=== PATIENT | female | born 1965 | race Caucasian/White ===

== ENCOUNTER 2017-05-25 09:11 | Day surgery (SDC) | payer OTHER ==
[2017-05-25 09:52] VITALS: TEMP 97.1
[2017-05-25 09:53] VITALS: BMI 25.3
[2017-05-25] MEDS ORDERED: Lactated Ringer's 500 ML IV SCH (10:45)
[2017-05-25] MEDS ORDERED: Lactated Ringer's 500 ML IV ONE (11:00)
[2017-05-25] MEDS ORDERED: Lidocaine Hydrochloride 5 ML INJ ONE (11:03)
[2017-05-25] MEDS ORDERED: Propofol 10 mg/ml Inj (20 ML) ONE (11:03)
[2017-05-25 13:09] VITALS: RESP 15; O2SAT 99
[2017-05-25 13:49] VITALS: BP 130/87; PULSE 85
== END 2017-05-25 12:24 | disposition home or self-care (01) ==
LOC: C.ENDO 09:11
PROVIDERS: ATTEND Internal Medicine Gastroenterology
DX: K64.8 Other hemorrhoids (principal)
CPT/HCPCS: 45378; J2704; J7120

== ENCOUNTER 2018-03-01 12:36 | Emergency (ER) | payer OTHER ==
[2018-03-01 12:36] VITALS: BMI 25.3
[2018-03-01 13:06] VITALS: O2SAT 100
[2018-03-01 14:21] LABS: BASO # 0.1 K/uL (0.0-0.2); BASO % 0.8 % (0.0-2.0); EOS # 0.4 K/uL (0.0-0.7); EOS % 4.5 % (0.0-4.0); HEMOGLOBIN 14.3 g/dL (11.0-16.0); LYMPH # 2.5 K/uL (1.0-4.3); LYMPH % 29.9 % (20.0-40.0); MEAN CELL VOLUME 93.3 fL (81.0-99.0); MEAN CORPUSCULAR HGB CONC 34.3 g/dL (33.0-37.0); MEAN PLATELET VOLUME 8.5 fL (7.2-11.7); MONO # 0.5 K/uL (0.0-0.8); MONO % 6.4 % (0.0-10.0); NEUT # 4.9 K/uL (1.8-7.0); NEUT % 58.4 % (50.0-75.0); RBC 4.48 Mil/uL (3.80-5.20); RED CELL DISTRIBUTION WIDTH 13.2 % (11.5-14.5); WHITE BLOOD COUNT 8.4 K/uL (4.8-10.8)
[2018-03-01 14:31] LABS: ALB/GLOB RATIO 1.2 (1.0-2.1); ALBUMIN 4.6 g/dL (3.5-5.0); ALT/SGPT 44 U/L (9-52); AST/SGOT 30 U/L (14-36); BLOOD UREA NITROGEN 11 mg/dL (7-17); CALCIUM 9.7 mg/dl (8.6-10.4); GFR NON-AFRICAN AMERICAN > 60
--- NOTE | 2018-03-01 14:35 | C.PDOC ---
History Of Present Illness 52 y/o female with PMHx of HTN and hypercholesterolemia, presents with complaints of a headache for 2 days. Patient reports the pain began in the back yesterday, and is now radiating to front. Took her blood pressure, found it to be elevated at ~170s/90s at home. Also noticed some pressure in her chest. Patient denies any dizziness, palpitations, visual changes, SOB, nausea, vomiting, SOB, fever, chills, or other associated symptoms. States she did not take any pain med today. Patient tried Excedrin yesterday with minimal relief. She reports compliance with her HCTZ 25 mg daily. Time Seen by Provider: 03/01/18 13:43 Chief Complaint (Nursing): Headache History Per: Patient History/Exam Limitations: no limitations Onset/Duration Of Symptoms: Days Current Symptoms Are (Timing): Still Present Past Medical History Reviewed: Historical Data, Nursing Documentation, Vital Signs Vital Signs: Last Vital Signs Temp 98.7 F 03/01/18 13:03 Pulse 79 03/01/18 13:03 Resp 20 03/01/18 13:03 BP 146/87 03/01/18 13:03 Pulse Ox 100 03/01/18 16:17 - Medical History PMH: Asthma, Colonic Polyps, HTN, Hypercholesterolemia Denies: [facility]OS[facility] ENDOSCOPIC BIOPSY OF LARGE INTESTINE (04/20/13) DESTRUC BARTHOLIN GLAND (04/24/14) ENDO RECTUM POLYPECTOMY (04/20/13) Family History: States: Unknown Family Hx - Social History Hx Tobacco Use: No Hx Alcohol Use: No Hx Substance Use: No - Immunization History Hx Tetanus Toxoid Vaccination: Yes Hx Influenza Vaccination: No Hx Pneumococcal Vaccination: No Review Of Systems Except As Marked, All Systems Reviewed And Found Negative. Constitutional: Negative for: Fever, Chills Eyes: Negative for: Vision Change ENT: Negative for: Nose Congestion Cardiovascular: Positive for: Chest Pain. Negative for: Palpitations Respiratory: Negative for: Shortness of Breath Gastrointestinal: Negative for: Nausea, Vomiting, Abdominal Pain Neurological: Positive for: Headache. Negative for: Weakness, Numbness, Incoordination, Change in Speech, Confusion, Dizziness Physical Exam - Physical Exam Appears: Non-toxic, No Acute Distress Skin: Warm, Dry Head: Atraumatic, Normacephalic Eye(s): bilateral: PERRL, EOMI, Other (bilateral conjunctival injection) Oral Mucosa: Moist Neck: Normal ROM, Supple Chest: Symmetrical, No Deformity, No Tenderness Cardiovascular: Rhythm Regular, No Murmur Respiratory: Normal Breath Sounds, No Rales, No Rhonchi, No Wheezing Gastrointestinal/Abdominal: Bowel Sounds (normal), Soft, No Tenderness, No Distention Extremity: Bilateral: Atraumatic, Normal Color And Temperature, Normal ROM Pulses: Left Dorsalis Pedis: Normal, Right Dorsalis Pedis: Normal Neurological/Psych: Oriented x3, Normal Speech, Normal Cranial Nerves, Normal Motor, Normal Sensation, Other (No focal deficits) ED Course And Treatment - Laboratory Results Result Diagrams: 03/01/18 14:11 03/01/18 14:11 ECG: Interpreted By Me, Viewed By Me ECG Rhythm: Sinus Rhythm ECG Interpretation: No Acute Changes Interpretation Of ECG: No ST elevations or depressions Rate From EC O2 Sat by Pulse Oximetry: 100 (RA) Pulse Ox Interpretation: Normal Medical Decision Making Medical Decision Making: Impression: 52 y/o female with headache and chest pain, PMHx of HTN and hypercholesterolemia Plan: --Blood work w/ cardiac enzymes --Urinalysis --EKG --Chest X-Ray --Motrin 600 mg PO --Tylenol 975 mg PO Labs reviewed: trop negative. Disposition Counseled Patient/Family Regarding: Studies Performed, Diagnosis, Need For Followup - Disposition Disposition: HOME/ ROUTINE Disposition Time: 16:16 Condition: STABLE Instructions: Headache, Adult Forms: Gen Discharge Inst [place] ([place]) - POA Present On Arrival: None - Clinical Impression Clinical Impression: Headache, Hypertension - Scribe Statement The provider has reviewed the documentation as recorded by the Scribe (Zuly Chapman) Provider Attestation: All medical record entries made by the Scribe were at my direction and personally dictated by me. I have reviewed the chart and agree that the record accurately reflects my personal performance of the history, physical exam, medical decision making, and the department course for this patient. I have also personally directed, reviewed, and agree with the discharge instructions and disposition.
[2018-03-01 16:21] VITALS: BP 125/76; PULSE 70; RESP 18; TEMP 98.6
--- NOTE | 2018-03-02 18:24 | CARD ---
APPROVED REPORT Date of service: 03/01/2018 EKG Measurement Heart [id number] [place] [id number] <Conclusion> Normal sinus rhythm Normal ECG
== END 2018-03-01 16:35 | disposition home or self-care (01) ==
LOC: C.ER 12:36
DX: R51 Headache (principal); I10 Essential (primary) hypertension; E78.00 Pure hypercholesterolemia, unspecified; Z87.891 Personal history of nicotine dependence